=== PATIENT | female | born 1965 | race Caucasian/White ===

== ENCOUNTER 2018-06-01 16:48 | Inpatient (IN) | payer OTHER ==
[~2018-06-01] VITALS: Ht 167.6 cm; Wt 81.8 kg
[~2018-06-01 16:48] MED LIST: MIDAZOLAM 5 MG/5 ML (VERSED) VIAL IJ ONE; SUCCINYLCHOLINE INJ 100 MG/5 ML SYR INJ ONE
[2018-06-01 17:09] LABS: HEMOGLOBIN 12.6 G/DL (11.5-16.0); MEAN PLATELET VOLUME 9.9 FL (7.4-10.4); RED CELL DISTRIBUTION WIDTH 12.8 % (10.0-14.5); WHITE BLOOD COUNT 15.7 10^3/uL (4.3-11.0)
[2018-06-01] MEDS ORDERED: HYDROmorphone 2 MG/ML VIAL (DILAUDID) IV ONE ×3 (17:15→22:30)
--- NOTE | 2018-06-01 17:19 | NUR ---
DR SALEH TO BEDSIDE
[2018-06-01 17:29] LABS: ALANINE AMINOTRANSFERASE 34 U/L (0-55); ALBUMIN 3.6 GM/DL (3.2-4.5); ALKALINE PHOSPHATASE 71 U/L (40-136); BILIRUBIN,DIRECT 0.1 MG/DL (0.0-0.3); BILIRUBIN,INDIRECT 0.1 MG/DL; BILIRUBIN,TOTAL 0.2 MG/DL (0.1-1.0); BUN/CREATININE RATIO 13; CALCIUM 8.5 MG/DL (8.5-10.1); CARBON DIOXIDE 21 MMOL/L (21-32); CHLORIDE 106 MMOL/L (98-107); CREATININE SERUM 0.72 MG/DL (0.60-1.30); GFR ESTIMATED > 60; GLUCOSE 120 MG/DL (70-105); POTASSIUM 3.2 MMOL/L (3.6-5.0); SODIUM 142 MMOL/L (135-145); TOTAL PROTEIN 6.3 GM/DL (6.4-8.2)
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
[2018-06-01 18:22] LABS: BILIRUBIN,URINE NEGATIVE (NEGATIVE); CLARITY,URINE VERY CLOUDY; COLOR,URINE YELLOW; GLUCOSE, URINE (UA) NEGATIVE (NEGATIVE); KETONES,URINE NEGATIVE (NEGATIVE); LEUKOCYTE ESTERASE ,URINE 1+ (NEGATIVE); NITRITE,URINE NEGATIVE (NEGATIVE); PH,URINE 5 (5-9); PROTEIN,URINE 3+ (NEGATIVE); UROBILINOGEN,URINE 1 MG/DL (NORMAL)
[2018-06-01] MEDS ORDERED: PIPERACILLIN/TAZO 4.5 GM VIAL (ZOSYN) IV ONE (18:27)
[2018-06-01] MEDS ORDERED: NS (IVPB) 100 ML ONE (18:28)
[2018-06-01 18:30] LABS: BACTERIA,URINE NEGATIVE /HPF; RBC,URINE 50-100 /HPF; SQUAMOUS EPITHELIAL CELL,UR 0-2 /HPF; WBC,URINE RARE /HPF
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
[2018-06-01] MEDS ORDERED: TETANUS,DIPTH,PERTUSS P/F (BOOSTRIX) 0.5 ML VIAL IM ONE ×2 (18:37→18:45)
[2018-06-01] MEDS ORDERED: LACTATED RINGERS 1,000 ML IV ONE ×2 (18:37)
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
[2018-06-01] MEDS ORDERED: proPOfol 200 MG/20 ML (DIPRIVAN) VIAL IV ONE (18:46)
[2018-06-01] MEDS ORDERED: SUCCINYLCHOLINE INJ 100 MG/5 ML SYR ONE (18:46)
[2018-06-01] MEDS ORDERED: SEVOFLURANE (ULTANE) 15 ML INHAL SOLN ONE ×12 (18:46→21:38)
[2018-06-01] MEDS ORDERED: MIDAZOLAM 2 MG/2 ML (VERSED) VIAL ONE (18:46)
[2018-06-01] MEDS ORDERED: ROCURONIUM 10 MG/ML 5 ML SYRINGE IV ONE ×2 (18:46→21:02)
[2018-06-01] MEDS ORDERED: LIDOCAINE PF 2% 5 ML (XYLOCAINE) VIAL ONE (18:46)
[2018-06-01] MEDS ORDERED: DEXAMETHASONE 10 MG/ML (DECADRON) 1 ML VIAL ONE (18:46)
[2018-06-01] MEDS ORDERED: ONDANSETRON 4 MG/2 ML (SDV) Z0FRAN ONE ×2 (18:46→20:51)
[2018-06-01] MEDS ORDERED: fentaNYL INJECTION 100 MCG/2 ML AMP ONE (18:46)
[2018-06-01] MEDS ORDERED: HEParin (CENTRAL IV FLUSH) 500 UNIT/5 ML SYR ONE (18:48)
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
[2018-06-01] MEDS: LACTATED RINGERS 1,000 ML IV PRN ×3 (19:15→20:00)
[2018-06-01] MEDS ORDERED: PHENYLEPHRINE 100 MCG/ML 10 ML (ANESTHESIA) SYR ONE ×2 (19:20→19:51)
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
[2018-06-01] MEDS ORDERED: morphine INJ 10 MG/ML 1ML (SYR OR VIAL) ONE (20:50)
[2018-06-01] MEDS ORDERED: PROMETHAZINE INJ 25 MG/ML (PHENERGAN) AMP ONE (20:50)
[2018-06-01] MEDS ORDERED: MEPERIDINE (DEMEROL) INJ 50 MG/ML ONE (20:50)
[2018-06-01] MEDS ORDERED: BUPIVACAINE 0.5% 30 ML (SENSORCAINE) VIAL ONE (21:02)
[2018-06-01] MEDS ORDERED: GLYCOPYRROLATE 0.2 MG/ML (ROBINUL) 2 ML VIAL ONE (21:02)
[2018-06-01] MEDS ORDERED: NEOSTIGMINE 1 MG/ML 5 ML SYRINGE ONE (21:02)
[2018-06-01] MEDS ORDERED: NS IV 1000 ML 1,000 ML IV SCH (21:37)
[2018-06-01] MEDS ORDERED: oxyCODONE 5 MG/5 ML ORAL SOLN (roxiCODONE) 5 ML UDC PO PRN (21:45)
[2018-06-01] MEDS ORDERED: PIPERACILLIN/TAZOBACTAM (BULK) 4.5 GM in NS (IVPB) 100 ML IV SCH (21:45)
[2018-06-01] MEDS ORDERED: METOCLOPRAMIDE INJ 10 MG/2 ML (REGLAN) IV PRN (21:45)
[2018-06-01] MEDS ORDERED: NALOXONE 0.4 MG/ML 1 ML (NARCAN) VIAL IV PRN (21:45)
[2018-06-01] MEDS ORDERED: ONDANSETRON 4 MG/2 ML (SDV) Z0FRAN IV PRN (21:45)
[2018-06-01] MEDS ORDERED: RT-ALBUTEROL SULF 2.5 MG/3 ML PRE-MIX VIAL INH SCH (21:45)
[2018-06-01] MEDS ORDERED: diphenhydrAMINE 50 MG/ML INJ (BENADRYL) IVP PRN (21:45)
[2018-06-01] MEDS ORDERED: TPN IV SCH (21:45)
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
[2018-06-01] MEDS ORDERED: PROMETHAZINE INJ 25 MG/ML (PHENERGAN) AMP IVP ONE (22:30)
[2018-06-01] MEDS ORDERED: ONDANSETRON 4 MG/2 ML (SDV) Z0FRAN IVP PRN (22:30)
[2018-06-01] MEDS ORDERED: MEPERIDINE (DEMEROL) INJ 50 MG/ML IVP ONE (22:30)
[2018-06-01] MEDS ORDERED: morphine INJ 10 MG/ML 1ML (SYR OR VIAL) IVP ONE (22:30)
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
[2018-06-01] MEDS ORDERED: NS (IVPB) 50 ML ONE (22:58)
[2018-06-01 23:00] VITALS: BP 114/55
--- NOTE | 2018-06-01 23:10 | NUR ---
THIS RN TO TAKE OVER CARE, REPORT RECEIVED FROM RECOVERY NURSE, BED IN LOWEST POSITION, CALL LIGHT WITHIN REACH, ICE TO ABDOMEN. PT RESTING.
[2018-06-01 23:15] VITALS: BP 102/56
[2018-06-01] MEDS: 1/2 NS W/KCL 20 MEQ/L 1,000 ML IV SCH (23:24)
[2018-06-01] MEDS: HYDROmorphone PF INJECTION 10 MG in NS (IVPB) 50 ML IV SCH (23:25)
[2018-06-01 23:30] VITALS: BP 115/66
[2018-06-01 23:45] VITALS: BP 107/56
[2018-06-02] VITALS (26 sets, daily range): BP systolic 96–119; BP diastolic 47–78
[2018-06-02] MEDS: RT-ALBUTEROL SULF 2.5 MG/3 ML PRE-MIX VIAL INH SCH ×6 (01:40→23:06)
[2018-06-02] MEDS ORDERED: NS (IVPB) 100 ML ONE (01:56)
[2018-06-02] MEDS ORDERED: PIPERACILLIN/TAZO 4.5 GM VIAL (ZOSYN) IV ONE (01:56)
[2018-06-02] MEDS: PIPERACILLIN/TAZOBACTAM (BULK) 4.5 GM in NS (IVPB) 100 ML IV SCH ×3 (02:23→17:00)
--- NOTE | 2018-06-02 02:45 | NUR ---
THIS RN ATTEMPTED MULTIPLE TIMES TO REACH PT FAMILY VIA PHONE NUMBER PT GAVE. NO ANSWER. PT DID NOT WANT THIS RN TO LEAVE ANY KIND OF MESSAGE. WILL CONTINUE TO ATTEMPT LATER.
[2018-06-02 03:51] LABS: BASOPHILS % (AUTO) 0 % (0-10); EOSINOPHILS % (AUTO) 0 % (0-10); HEMATOCRIT 34 % (35-52); LYMPHOCYTES # (AUTO) 0.4 X 10^3 (1.0-4.0); LYMPHOCYTES % (AUTO) 4 % (12-44); MEAN CORPUSCULAR HEMOGLOBIN 35 PG (25-34); MEAN CORPUSCULAR HGB CONC 33 G/DL (32-36); MEAN CORPUSCULAR VOLUME 108 FL (80-99); MEAN PLATELET VOLUME 9.9 FL (7.4-10.4); MONOCYTES # (AUTO) 0.5 X 10^3 (0.0-1.0); MONOCYTES % (AUTO) 6 % (0-12); NEUTROPHILS # (AUTO) 8.4 X 10^3 (1.8-7.8); NEUTROPHILS % (AUTO) 91 % (42-75); PLATELET COUNT 172 10^3/uL (130-400); RED CELL DISTRIBUTION WIDTH 12.9 % (10.0-14.5); WHITE BLOOD COUNT 9.3 10^3/uL (4.3-11.0)
[2018-06-02 04:28] LABS: BUN/CREATININE RATIO 14; CARBON DIOXIDE 22 MMOL/L (21-32); CHLORIDE 108 MMOL/L (98-107); CREATININE SERUM 0.71 MG/DL (0.60-1.30); GFR ESTIMATED > 60; GLUCOSE 163 MG/DL (70-105); MAGNESIUM 1.5 MG/DL (1.8-2.4); PHOSPHORUS 4.7 MG/DL (2.3-4.7); POTASSIUM 4.9 MMOL/L (3.6-5.0); SODIUM 139 MMOL/L (135-145)
[2018-06-02] MEDS: POTASSIUM CL 10MEQ/50ML IVPB 50 ML IV SCH (05:01)
[2018-06-02] MEDS: MAGNESIUM 1 GM/100 ML IVPB 100 ML IV SCH ×3 (05:01→06:18)
[2018-06-02] MEDS: KCL 20 MEQ TAB (K-DUR) PO SCH (05:01)
[2018-06-02] MEDS: 1/2 NS W/KCL 20 MEQ/L 1,000 ML IV SCH ×2 (05:22→10:04)
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
[2018-06-02] MEDS: PANTOPRAZOLE 40 MG (PROTONIX) VIAL IV SCH (08:00)
[2018-06-02] MEDS: SENNA W/DOCUSATE (SENOKOT S) TABLET PO SCH (08:01)
[2018-06-02] MEDS: PANTOPRAZOLE 40 MG (PROTONIX) TAB PO SCH (08:01)
[2018-06-02] MEDS: ENOXAPARIN 30 MG/0.3 ML (LOVENOX) SYR SC SCH ×2 (08:01→20:03)
--- NOTE | 2018-06-02 08:59 | Diagnostic Imaging Report ---
Indication: Dyspnea. Comparison made with prior examination from 06/01/2018. Findings: The heart size is normal. There is left basilar infiltrate and left pleural effusion. There is no pneumothorax. The mediastinum is unremarkable. There is a left subclavian central venous catheter in place. Nasogastric tube is in place. Impression: Left base infiltrate and probable small left pleural effusion. Dictated by: Dictated on workstation # [id number]
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
[2018-06-02] MEDS: HYDROmorphone PF INJECTION 10 MG in NS (IVPB) 50 ML IV SCH ×2 (10:39→23:48)
[2018-06-02] MEDS: NS IV 1000 ML 1,000 ML IV SCH ×2 (11:24→19:00)
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
[2018-06-02] MEDS ORDERED: 1/2 NS IV SOLUTION 1,000 ML IV PRN (13:17)
[2018-06-02] MEDS ORDERED: THIAMINE INJECTION 100 MG, FOLIC ACID INJECTION 1 MG, MAGNESIUM SULFATE 2 GM, VITAMIN M... IV SCH ×5 (13:17)
[2018-06-02] MEDS ORDERED: D5 1/2 NS 1000 ML IV SOLUTION 1,000 ML IV PRN (13:30)
[2018-06-02] MEDS ORDERED: LORazepam INJ 2 MG/ML (ATIVAN) VIAL IM/IV PRN (13:30)
[2018-06-02] MEDS: THIAMINE INJECTION 100 MG, FOLIC ACID INJECTION 1 MG, VITAMIN MULTI INJECTION 10 ML, MA... IV SCH ×5 (13:55)
[2018-06-02] MEDS: diphenhydrAMINE 50 MG/ML INJ (BENADRYL) IV PRN (20:03)
--- NOTE | 2018-06-02 20:20 | Anesthesia-General Post-Op ---
General Patient Condition Mental Status/LOC: Same as Preop Cardiovascular: Satisfactory Nausea/Vomiting: Absent Respiratory: Satisfactory Pain: Controlled Complications: Absent Post Op Complications Complications None Follow Up Care/Instructions Patient Instructions None needed. Anesthesia/Patient Condition Patient Condition Patient is doing well, no complaints, stable vital signs, no apparent adverse anesthesia problems. No complications reported per nursing. JAVIER HUBER CRNA Jun 02, 2018 20:20
[2018-06-02] MEDS ORDERED: ONDANSETRON 4 MG/2 ML (SDV) Z0FRAN IVP PRN (21:45)
[2018-06-02] MEDS ORDERED: METOCLOPRAMIDE INJ 10 MG/2 ML (REGLAN) IVP PRN (21:45)
[2018-06-03] VITALS (27 sets, daily range): BP systolic 81–121; BP diastolic 39–74
[2018-06-03] MEDS: NS IV 1000 ML 1,000 ML IV SCH (00:21)
[2018-06-03] MEDS: RT-ALBUTEROL SULF 2.5 MG/3 ML PRE-MIX VIAL INH SCH ×6 (01:50→22:16)
[2018-06-03] MEDS: PIPERACILLIN/TAZOBACTAM (BULK) 4.5 GM in NS (IVPB) 100 ML IV SCH ×3 (02:47→17:48)
[2018-06-03 03:04] LABS: BASOPHILS % (AUTO) 0 % (0-10); EOSINOPHILS % (AUTO) 0 % (0-10); HEMATOCRIT 28 % (35-52); HEMOGLOBIN 9.1 G/DL (11.5-16.0); LYMPHOCYTES # (AUTO) 1.1 X 10^3 (1.0-4.0); LYMPHOCYTES % (AUTO) 12 % (12-44); MEAN CORPUSCULAR HEMOGLOBIN 36 PG (25-34); MEAN CORPUSCULAR HGB CONC 33 G/DL (32-36); MEAN CORPUSCULAR VOLUME 110 FL (80-99); MONOCYTES # (AUTO) 0.4 X 10^3 (0.0-1.0); MONOCYTES % (AUTO) 4 % (0-12); NEUTROPHILS # (AUTO) 7.9 X 10^3 (1.8-7.8); NEUTROPHILS % (AUTO) 84 % (42-75); PLATELET COUNT 130 10^3/uL (130-400); RED CELL DISTRIBUTION WIDTH 12.9 % (10.0-14.5); WHITE BLOOD COUNT 9.5 10^3/uL (4.3-11.0)
[2018-06-03 03:17] LABS: BUN/CREATININE RATIO 21; CALCIUM 8.1 MG/DL (8.5-10.1); CARBON DIOXIDE 25 MMOL/L (21-32); CHLORIDE 108 MMOL/L (98-107); CREATININE SERUM 0.76 MG/DL (0.60-1.30); GFR ESTIMATED > 60; GLUCOSE 115 MG/DL (70-105); MAGNESIUM 2.9 MG/DL (1.8-2.4); PHOSPHORUS 3.6 MG/DL (2.3-4.7); POTASSIUM 4.5 MMOL/L (3.6-5.0); SODIUM 140 MMOL/L (135-145)
[2018-06-03] MEDS: POTASSIUM CL 10MEQ/50ML IVPB 50 ML IV SCH (05:13)
[2018-06-03] MEDS: MAGNESIUM 1 GM/100 ML IVPB 100 ML IV SCH (05:13)
[2018-06-03] MEDS: KCL 20 MEQ TAB (K-DUR) PO SCH (05:13)
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
--- NOTE | 2018-06-03 08:11 | Diagnostic Imaging Report ---
INDICATION: Dyspnea. TECHNIQUE: Single frontal view of the chest. COMPARISON: 06/02/2018 FINDINGS: Lung volumes are low. An enteric tube crosses the [id number] and appears coiled at the stomach. The left central line tip is unchanged in position, appears to lie along the lateral SVC wall. There is airspace opacity in the left lung base with a small left pleural effusion. Increasing opacities are seen in the right lung and in the perihilar region bilaterally. No pneumothorax is seen. The cardiac silhouette is stable in size. IMPRESSION: 1. Stable small left pleural effusion and left basilar airspace opacities. Mildly increased bilateral perihilar and right lung opacities. This may be due to mildly increased edema, although likely accentuated by low lung volumes. Dictated by: Dictated on workstation # [id number]
[2018-06-03] MEDS: PANTOPRAZOLE 40 MG (PROTONIX) VIAL IV SCH (08:21)
[2018-06-03] MEDS: ENOXAPARIN 30 MG/0.3 ML (LOVENOX) SYR SC SCH ×2 (08:21→21:10)
[2018-06-03] MEDS: PANTOPRAZOLE 40 MG (PROTONIX) TAB PO SCH (08:21)
[2018-06-03] MEDS: SENNA W/DOCUSATE (SENOKOT S) TABLET PO SCH (08:21)
[2018-06-03] MEDS: THIAMINE INJECTION 100 MG, FOLIC ACID INJECTION 1 MG, VITAMIN MULTI INJECTION 10 ML, MA... IV SCH ×5 (09:36)
--- NOTE | 2018-06-03 11:27 | NUR ---
Pastoral care visit, offered support and encouragement and availability of Pastoral Care.
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
[2018-06-03 14:51] LABS: HEMOGLOBIN 8.4 G/DL (11.5-16.0); MEAN PLATELET VOLUME 10.1 FL (7.4-10.4); WHITE BLOOD COUNT 10.2 10^3/uL (4.3-11.0)
[2018-06-03] MEDS: fentaNYL INJECTION 100 MCG/2 ML AMP IVP PRN ×2 (14:59→17:48)
[2018-06-03] MEDS: LORazepam INJ 2 MG/ML (ATIVAN) VIAL IV PRN (16:52)
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
[2018-06-03] MEDS ORDERED: 1/2 NS IV SOLUTION 1,000 ML IV SCH (17:00)
[2018-06-03] MEDS ORDERED: POTASSIUM CHLORIDE IV SCH ×9 (17:00)
[2018-06-03] MEDS ORDERED: SODIUM CHLORIDE IV SCH ×9 (17:00)
[2018-06-03] MEDS ORDERED: [UNRECOGNIZED DRUG - OTHER] IV SCH ×9 (17:00)
--- NOTE | 2018-06-03 20:35 | NUR ---
Update via telephone to Dr Contreras on patient worsening condition. Notified that chest x-ray has been done and awaiting lab results. Addendum: 06/03/18 at 2350 by ARUNA JUNIOR RN Corrected time for this note is 5.
--- NOTE | 2018-06-03 20:42 | NUR ---
Dr Courtney notified at this time that patient has coarse bilateral lung sounds, loose cough continues. Patient remains on Vapotherm 25L/55%. Patient anxious and c/o SOA. Order for BNP and stat chest x-ray, E-ICU to follow tonight.
--- NOTE | 2018-06-03 21:15 | Diagnostic Imaging Report ---
INDICATION: Shortness of air COMPARISON STUDY: Chest from 3 AM. FINDINGS: Portable view of the chest demonstrates a left subclavian catheter and orogastric tube in place. Heart size is normal. Patchy bilateral pulmonary infiltrates are present. Infiltrates mainly in the left lower lobe appear stable. Infiltrates in the right upper lobe have increased. IMPRESSION: There are patchy bilateral pulmonary infiltrates with some increase in the right upper lobe. Dictated by: Dictated on workstation # [id number]
--- NOTE | 2018-06-03 22:36 | NUR ---
Order from E ICU to give Vancomycin IV at this time.
[2018-06-03] MEDS ORDERED: VANCOMYCIN 1 GM/NS 250 ML IVPB IV ONE ×2 (22:45)
[2018-06-03] MEDS ORDERED: VANCOMYCIN 1000 MG/VIAL ONE (22:52)
[2018-06-03] MEDS ORDERED: NS (IVPB) 250 ML ONE (22:54)
[2018-06-04] VITALS (22 sets, daily range): BP systolic 94–193; BP diastolic 45–97
[2018-06-04] MEDS: fentaNYL INJECTION 100 MCG/2 ML AMP IVP PRN ×2 (01:04→08:05)
[2018-06-04] MEDS: diphenhydrAMINE 50 MG/ML INJ (BENADRYL) IV PRN (01:04)
[2018-06-04] MEDS: PIPERACILLIN/TAZOBACTAM (BULK) 4.5 GM in NS (IVPB) 100 ML IV SCH ×2 (01:09→11:35)
[2018-06-04] MEDS ORDERED: RT-ALBUTEROL SULF 2.5 MG/3 ML PRE-MIX VIAL INH PRN (03:00)
[2018-06-04 03:15] LABS: BASOPHILS % (AUTO) 0 % (0-10); EOSINOPHILS % (AUTO) 0 % (0-10); HEMATOCRIT 25 % (35-52); HEMOGLOBIN 7.9 G/DL (11.5-16.0); LYMPHOCYTES # (AUTO) 0.6 X 10^3 (1.0-4.0); LYMPHOCYTES % (AUTO) 7 % (12-44); MEAN CORPUSCULAR HEMOGLOBIN 35 PG (25-34); MEAN CORPUSCULAR HGB CONC 31 G/DL (32-36); MEAN CORPUSCULAR VOLUME 111 FL (80-99); MEAN PLATELET VOLUME 10.4 FL (7.4-10.4); MONOCYTES # (AUTO) 0.3 X 10^3 (0.0-1.0); MONOCYTES % (AUTO) 4 % (0-12); NEUTROPHILS % (AUTO) 89 % (42-75); PLATELET COUNT 131 10^3/uL (130-400); RED CELL DISTRIBUTION WIDTH 12.7 % (10.0-14.5); WHITE BLOOD COUNT 8.9 10^3/uL (4.3-11.0)
[2018-06-04 03:48] LABS: ALANINE AMINOTRANSFERASE 43 U/L (0-55); ALBUMIN 2.7 GM/DL (3.2-4.5); ALKALINE PHOSPHATASE 68 U/L (40-136); BILIRUBIN,TOTAL 0.4 MG/DL (0.1-1.0); BUN/CREATININE RATIO 17; CALCIUM 8.4 MG/DL (8.5-10.1); CARBON DIOXIDE 26 MMOL/L (21-32); CHLORIDE 110 MMOL/L (98-107); CREATININE SERUM 0.58 MG/DL (0.60-1.30); GFR ESTIMATED > 60; GLUCOSE 129 MG/DL (70-105); MAGNESIUM 2.3 MG/DL (1.8-2.4); PHOSPHORUS 1.6 MG/DL (2.3-4.7); POTASSIUM 3.7 MMOL/L (3.6-5.0); SODIUM 142 MMOL/L (135-145); TOTAL PROTEIN 5.4 GM/DL (6.4-8.2)
[2018-06-04] MEDS: KCL 20 MEQ TAB (K-DUR) PO SCH (04:19)
[2018-06-04] MEDS: POTASSIUM CL 10MEQ/50ML IVPB 50 ML IV SCH (04:19)
[2018-06-04] MEDS: MAGNESIUM 1 GM/100 ML IVPB 100 ML IV SCH (04:19)
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
[2018-06-04] MEDS ORDERED: LACTATED RINGERS 1,000 ML IV SCH ×2 (05:45→13:30)
[2018-06-04] MEDS: LACTATED RINGERS 1,000 ML IV SCH ×2 (06:18→11:35)
[2018-06-04] MEDS: RT-ALBUTEROL SULF 2.5 MG/3 ML PRE-MIX VIAL INH SCH ×3 (06:30→14:26)
--- NOTE | 2018-06-04 06:30 | NUR ---
Consent for intubation and facility transfer signed at this time by patient.
[2018-06-04] MEDS ORDERED: PROPOFOL DRIP (ICU) 100 ML IV ONE (06:43)
[2018-06-04] MEDS ORDERED: VANCOMYCIN 1250 MG/NS 250 ML IVPB IV SCH ×2 (07:00)
--- NOTE | 2018-06-04 07:04 | NUR ---
PHARMACY TO DOSE VANCOMYCIN: BASED ON ADJ BW 68 KG, SCr 0.6, EST CrCl 121 PATIENT RECEIVED 1 GM @ 23:00, MAIN DOSE 1250 MG Q12HRS VANCOMYCIN TROUGH ORDERED FOR 06/05/18 @ 06:00 IF TROUGH > 20 HOLD 06/05/18 07:00 DOSE
--- NOTE | 2018-06-04 07:53 | Pulmonary Procedures ---
Pulmonary Procedures Date of Procedure Date of Service: Jun 04, 2018 Reason for Intubation: resp failure Time of Intubation: 07:52 Intubation Method: orotracheal Tube Size: 8 Medications: Propofol, Versed Positive End Tide CO2: Yes Breath Sounds after Intubation: bilateral-equal Intubation Complications: no complications Post Intubation Xray: Yes CARMELITA TILLEY DO Jun 04, 2018 07:53
[2018-06-04] MEDS: LORazepam INJ 2 MG/ML (ATIVAN) VIAL IV PRN (08:05)
[2018-06-04] MEDS: PANTOPRAZOLE 40 MG (PROTONIX) TAB PO SCH (08:06)
[2018-06-04] MEDS: PANTOPRAZOLE 40 MG (PROTONIX) VIAL IV SCH (08:28)
[2018-06-04] MEDS: ENOXAPARIN 30 MG/0.3 ML (LOVENOX) SYR SC SCH (08:28)
[2018-06-04] MEDS: SENNA W/DOCUSATE (SENOKOT S) TABLET PO SCH (08:29)
[2018-06-04] MEDS ORDERED: LORazepam INJ 2 MG/ML (ATIVAN) VIAL IVP PRN (08:30)
[2018-06-04] MEDS ORDERED: fentaNYL INJECTION 1,250 MCG in NS (IVPB) 250 ML IV SCH (08:30)
[2018-06-04] MEDS ORDERED: PROPOFOL DRIP (ICU) 100 ML IV SCH (08:45)
--- NOTE | 2018-06-04 08:46 | Diagnostic Imaging Report ---
INDICATION: Dyspnea. TECHNIQUE: Single view chest at 3:38 AM. CORRELATION STUDY: 06/03/2018. FINDINGS: The left-sided central line and gastric tube remain in place. The heart size and mediastinum are generally stable. Scattered bilateral pulmonary infiltrates are present, particularly in the right mid and left mid to lower lung, which overall appear increased from the prior study. IMPRESSION: Patchy bilateral pulmonary infiltrates persist and overall appear slightly increased and more consolidated from the previous study. Dictated by: Dictated on workstation # [id number]
--- NOTE | 2018-06-04 08:55 | Diagnostic Imaging Report ---
INDICATION: Respiratory distress Comparison with study earlier this same date. This film is timed 8:11 a.m. FINDINGS: An ET tube projects in good position midthoracic trachea. Left subclavian line is across the midline at the upper SVC level. An OG catheter is in the stomach. There are 5 lobed airspace opacities bilaterally showing mild improvements in density at the level of the right upper lobe with no pneumothorax or adverse development. IMPRESSION: Support apparatus projects in good alignment bilateral infiltrates may have increased at the level of the right upper lobe with no pneumothorax or substantial pleural fluid apparent. Dictated by: Dictated on workstation # [id number]
--- NOTE | 2018-06-04 09:37 | NUR ---
CM/SS. Respond to consult requested by daughter, Esha Carrizales. 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 Esha inquired about FMLA, answered her questions to her satisfaction. She is working with patient's employer, [employer], and Esha is also pursuing FMLA for herself. Discussed transfer with Unit RN, he is managing with patient and physician and indicates no assistance needed.
[2018-06-04 10:13] LABS: ABG OXYGEN SATURATION 100 % (94-100); ABG PCO2 49 MMHG (35-45); ABG PH 7.39 (7.37-7.43); ABG PO2 304 MMHG (79-93)
[2018-06-04 10:18] LABS: ALLENS TEST YES-POS
[2018-06-04 10:19] LABS: PATIENT TEMP 99.4; VENTILATOR YES
--- NOTE | 2018-06-04 11:19 | NUR ---
Pt noted to be in visible respiratory distress at change of shift. Dr. Roz MD and RT Christina and several ICU nurses present to help with intubation. 0731- Versed 2mg IVP given. 0737- Propofol 50mg IVP administered. 0738- Additional Propofol 50mg IVP administered. 0739- Succ 80mg IVP administered. 0740- 8.[address].
--- NOTE | 2018-06-04 13:15 | NUR ---
Pastoral care visit, daughter at bedside visited with daughter and offered support and encouragement.
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
[2018-06-04] MEDS: POTASSIUM PHOSPHATE INJ 6.8 MM in NS (IVPB) 50 ML IV SCH ×3 (13:39→17:50)
[2018-06-04] MEDS ORDERED: POTASSIUM CHLORIDE IV SCH ×8 (17:00)
[2018-06-04] MEDS ORDERED: SODIUM CHLORIDE IV SCH ×8 (17:00)
[2018-06-04] MEDS ORDERED: [UNRECOGNIZED DRUG - OTHER] IV SCH ×8 (17:00)
[2018-06-05] MEDS ORDERED: TROUGH ORDER-PHARMACY XX NR (06:00)
--- NOTE | 2018-06-07 07:47 | Physician Query-General Query ---
Physician Query-General Query to Physician: Dr Saleh Please clarify what part of the small bowel was excised? Per OP report: small bowel resection and anastomosis, We then proceeded with small bowel resection as well as anastomosis of through and through transection of the small bowel. Approximately, 2 to 3 cm of the ends of the length of both ends was resected to viable bowel Thank you PHYSICIAN RESPONSE: Based on the clinical findings in the record, please respond to the query above on this document as an addendum. Possible, probable, or questionable diagnosis can be coded for INPATIENTS ONLY. Physician Response: Physician Response ileum If you have questions please contact: [employer]: Rocio Arndt Ext: [phone] Thank you for your time and cooperation. 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
== END 2018-06-04 18:46 | disposition short-term general hospital (02) | DRG 957 ==
LOC: ER 16:57 → SDC 18:41 → ICU 23:10
PROVIDERS: ADMIT Surgery; ATTEND Surgery
PROC: 0DBB0ZZ Excision of Ileum, Open Approach (ICD-10-PCS; 2018-06-01)
PROC: 0DQW0ZZ Repair Peritoneum, Open Approach (ICD-10-PCS; 2018-06-01)
PROC: 0DTH0ZZ Resection of Cecum, Open Approach (ICD-10-PCS; principal; 2018-06-01 19:11)
PROC: 5A1935Z Respiratory Ventilation, Less than 24 Consecutive Hours (ICD-10-PCS; 2018-06-04)
PROC: 0BH17EZ Insertion of Endotracheal Airway into Trachea, Via Natural or Artificial Opening (ICD-10-PCS; 2018-06-04)
DX: S36.438A Laceration of other part of small intestine, initial encounter (principal); J96.90 Respiratory failure, unspecified, unspecified whether with hypoxia or hypercapnia; S27.329A Contusion of lung, unspecified, initial encounter; S36.538A Laceration of other part of colon, initial encounter; S36.893A Laceration of other intra-abdominal organs, initial encounter; S22.22XA Fracture of body of sternum, initial encounter for closed fracture; S22.31XA Fracture of one rib, right side, initial encounter for closed fracture; S61.412A Laceration without foreign body of left hand, initial encounter; S61.411A Laceration without foreign body of right hand, initial encounter; S81.011A Laceration without foreign body, right knee, initial encounter; S81.012A Laceration without foreign body, left knee, initial encounter; S10.93XA Contusion of unspecified part of neck, initial encounter; S80.12XA Contusion of left lower leg, initial encounter; F17.210 Nicotine dependence, cigarettes, uncomplicated; F41.1 Generalized anxiety disorder; F10.20 Alcohol dependence, uncomplicated; V43.62XA Car passenger injured in collision with other type car in traffic accident, initial encounter; Y92.410 Unspecified street and highway as the place of occurrence of the external cause
CPT/HCPCS: 36415; 51702; 70450; 71045; 71260; 72125; 72170; 74177; 80048; 80053; 80076; 80320; 81000; 82805; 82962; 83735; 83880; 84100; 84134; 84478; 84703; 85025; 85027; 86850; 86900; 86901; 87070; 87081; 87205; 88302; 88307; 90471; 90715; 93041; 94002; 94640; 94664; 94799; 96374; 99291; 99292